=== PATIENT | male | born 1975 | race Caucasian/White ===

== ENCOUNTER 2017-04-25 19:50 | Inpatient (IN) | payer OTHER ==
[2017-04-25 20:32] VITALS: BMI 22.4
--- NOTE | 2017-04-25 21:21 | HP ---
COWS - Scale Resting Pulse: 2= MS 101-120 Sweatin=Flushed/Facial Moisture Restless Observation: 5= Unable to Sit Still Pupil Size: 1= Pupils >than Normal Bone or Joint Aches: 4=Acute Joint/Muscle Pain Runny Nose/ Eye Tearin= Nasal Congestion GI Upset > 30mins: 2= Nausea/Diarrhea Tremor Observation: 2= Slight Tremor Visible Yawning Observation: 1= 1-2x During Session Anxiety or Irritability: 2=Irritable/Anxious Goose Flesh Skin: 0=Smooth Skin COWS Score: 22 Admission [facility] Chief Complaint: C/O WITHDRAWAL SX'S; SEEKING DETOX FOR HEROIN DEPENDENCE Allergies/Adverse Reactions: Allergies Allergy/AdvReac Type Severity Reaction Status Date / Time apple Allergy Severe Swelling Verified 04/25/17 20:44 No Known Drug Allergies Allergy Verified 11/23/15 17:29 FRUITS AND VEGETABLES Allergy Severe Swelling Uncoded 04/25/17 20:44 History of Present Illness: 41 Y.O. MALE WITH LONG HX/O OPIOID AND COCAINE DEPENDENCE SEEKING DETOX TXMENT. HE REPORTS THIS IS HIS FIRST TIME IN SUBSTANCE ABUSE TXMENT. SELF REFERRED. DENIES ANY SIGNIFICANT PERIOD OF CLEAN TIME. Exam Limitations: Clinical Condition - Ebola screening Have you traveled outside of the country in the last 21 days: No Have you had contact with anyone from an Ebola affected area: No Have you been sick,other than usual withdrawal symptoms: No Do you have a fever: No - Review of Systems Constitutional: Chills, Loss of Appetite, Malaise, Night Sweats, Changes in sleep EENT: reports: Nose Congestion, Dental Problems (MISSING TEETH) Respiratory: reports: No Symptoms reported Cardiac: reports: No Symptoms Reported GI: reports: Nausea, Poor Appetite, Poor Fluid Intake, Rectal Bleeding : reports: No Symptoms Reported Musculoskeletal: reports: Back Pain, Joint Pain Integumentary: reports: Other (ABRASION TO RIGHT SIDE OF FACE) Neuro: reports: Headache Endocrine: reports: No Symptoms Reported Hematology: reports: No Symptoms Reported Psychiatric: reports: Anxious Other Systems: Reviewed and Negative Patient History - Patient Medical History Hx Anemia: No Hx Asthma: Yes (Pt is on Albuterol IH) Hx Chronic Obstructive Pulmonary Disease (COPD): No Hx Cancer: No Hx Cardiac Disorders: No Hx Congestive Heart Failure: No Hx Hypertension: No Hx Hypercholesterolemia: No Hx Pacemaker: No HX Cerebrovascular Accident: No Hx Seizures: No Hx Dementia: No Hx Diabetes: No Hx Gastrointestinal Disorders: No Hx Liver Disease: No Hx Genitourinary Disorders: No Hx Sexually Transmitted Disorders: No Hx Renal Disease (ESRD): No Hx Thyroid Disease: No Hx Human Immunodeficiency Virus (HIV): No Hx Hepatitis C: No Hx Depression: No Hx Suicide Attempt: No Hx Bipolar Disorder: No Hx Schizophrenia: No Other Medical History: ANXIETY - Patient Surgical History Past Surgical History: No Hx Neurologic Surgery: No Hx Cataract Extraction: No Hx Cardiac Surgery: No Hx Lung Surgery: No Hx Breast Surgery: No Hx Breast Biopsy: No Hx Abdominal Surgery: No Hx Appendectomy: No Hx Cholecystectomy: No Hx Genitourinary Surgery: No Hx Orthopedic Surgery: No Anesthesia Reaction: No - PPD History Previous Implant?: Yes Documented Results: Negative w/o proof Implanted On Prior R Admission?: No PPD to be Administered?: Yes - Smoking Cessation Smoking history: Current every day smoker Have you smoked in the past 12 months: Yes Aproximately how many cigarettes per day: 20 Cigars Per Day: 0 Hx Chewing Tobacco Use: No Initiated information on smoking cessation: Yes 'Breaking Loose' booklet given: 04/25/17 - Substance & Tx. History Hx Alcohol Use: No Hx Substance Use: Yes Substance Use Type: Cocaine, Heroin Hx Substance Use Treatment: No - Substances Abused Heroin Route: Injection Frequency: Daily Amount used: 15 bags Age of first use: 39 Date of Last Use: 04/24/17 Cocaine Route: Injection Frequency: 3-6 times per week Amount used: $40 Age of first use: 21 Date of Last Use: 04/21/17 Family Disease History - Family Disease History Family Disease History: Diabetes: Father (asthma), Respiratory: Father, Other: Mother (healthy) Admission Physical Exam BHS - Vital Signs Vital Signs: Vital Signs - 24 hr 04/25/17 20:19 Temperature 98.8 F Pulse Rate 105 H Respiratory 18 Rate Blood Pressure 116/80 - Physical General Appearance: Yes: Moderate Distress, Tremorous, Irritable, Anxious HEENTM: Yes: EOMI, Normocephalic, Normal Voice, NI, Pharynx Normal, Nasal Congestion, Other (MISSING TEETH) Respiratory: Yes: Chest Non-Tender, Lungs Clear, Normal Breath Sounds, No Respiratory Distress, No Accessory Muscle Use Neck: Yes: No masses,lesions,Nodules, Supple, Trachea in good position Breast: Yes: Breast Exam Deferred Cardiology: Yes: Regular Rhythm, S1, S2, Tachycardia Abdominal: Yes: Normal Bowel Sounds, Non Tender, Flat, Soft Genitourinary: Yes: Other (NO C/O) Back: Yes: Normal Inspection Musculoskeletal: Yes: full range of Motion, Gait Steady Extremities: Yes: Normal Range of Motion, Non-Tender, Tremors Neurological: Yes: Alert, Motor Strength 5/5 Integumentary: Yes: Normal Color, Dry, Warm, Track Portillo (BUE), Other (MULTIPLE AREAS OF ABRASION NOTED TO PATIENT FACE AND ARMS. STATES FROM PICKING AT HIS SKIN) Lymphatic: Yes: Within Normal Limits - Diagnostic (1) Opioid dependence with withdrawal Current Visit: Yes Status: Chronic (2) Cocaine dependence, uncomplicated Current Visit: Yes Status: Chronic (3) Nicotine dependence Current Visit: Yes Status: Chronic Qualifiers: Nicotine product type: cigarettes Substance use status: uncomplicated Qualified Code(s): F17.210 - Nicotine dependence, cigarettes, uncomplicated (4) Asthma Current Visit: No Status: Chronic Qualifiers: Asthma severity: mild Asthma persistence: intermittent Asthma complication type: uncomplicated Qualified Code(s): J45.20 - Mild intermittent asthma, uncomplicated Cleared for Admission S - Detox or Rehab [facility] Level of Care: Medically Managed Detox Regimen/Protocol: Methadone [facility] Breath Alcohol Content Breath Alcohol Content: 0 Urine Drug Screen - Results Drug Screen Negative: No Urine Drug Screen Results: IVORY-Cocaine, OPI-Opiates
[2017-04-25] MEDS ORDERED: MENTHOL/PHENOL 1 EACH UD MM PRN (21:30)
[2017-04-25] MEDS ORDERED: ACETAMINOPHEN 325 MG TABLET (FP) PO PRN (21:30)
[2017-04-25] MEDS ORDERED: NICOTINE POLACRILEX 2 MG GUM BC PRN (21:30)
[2017-04-25] MEDS ORDERED: MAG HYDROX/AL HYDROX/SIMETH 30 ML UNIT-DOSE CUP PO PRN (21:30)
[2017-04-25] MEDS ORDERED: MAGNESIUM CITRATE 300 ML BOTTLE PO PRN (21:30)
[2017-04-25] MEDS ORDERED: METHADONE HCL 10 MG TABLET (FOR DETOX USE ONLY) PO ONE ×2 (21:30→23:00)
[2017-04-25] MEDS ORDERED: IBUPROFEN 400 MG TABLET (FP) PO PRN (21:30)
[2017-04-25] MEDS ORDERED: P-EPHED 60MG/TRIPROLIDI 2.5MG TABLET PO PRN (21:30)
[2017-04-25] MEDS ORDERED: guaiFENesin/D-METHORPHAN HB 10 ML UNIT-DOSE CUPS PO PRN (21:30)
[2017-04-25] MEDS ORDERED: MAGNESIUM HYDROX 2400MG/30ML ORAL SUSPENSION 30 ML CUP PO PRN (21:30)
[2017-04-25] MEDS ORDERED: LOPERAMIDE HCL 2 MG CAPSULE PO PRN (21:30)
[2017-04-25] MEDS ORDERED: ONDANSETRON *ODT* 4 MG TABLET SL PRN (21:33)
[2017-04-25] MEDS ORDERED: BACITRACIN 15 GM TUBE TOPICAL OINTMENT TP SCH (22:00)
[2017-04-25] MEDS: BACITRACIN 0.9 GM PACKET TP SCH (22:46)
[2017-04-25] MEDS: BUDESONIDE/FORMETEROL FUMARATE 160/4.5 mcg INHALER IH SCH (22:48)
[2017-04-25] MEDS: THIAMINE HCL 100 MG TABLET (FP) PO SCH (22:48)
[2017-04-25] MEDS: ALBUTEROL SO4 18 GM HFA INHALER IH PRN (22:50)
[2017-04-25 23:58] LABS: URINE APPEARANCE CLEAR; URINE BILIRUBIN NEGATIVE (NEGATIVE); URINE BLOOD NEGATIVE (NEGATIVE); URINE COLOR YELLOW; URINE GLUCOSE (UA) NEGATIVE (NEGATIVE); URINE KETONE NEGATIVE (NEGATIVE); URINE LEUK ESTERASE NEGATIVE (NEGATIVE); URINE NITRITE NEGATIVE (NEGATIVE); URINE PROTEIN NEGATIVE (NEGATIVE); URINE UROBILINOGEN 4.0 E.U/dl mg/dL (0.2-1.0)
[2017-04-26] MEDS ORDERED: TRIMETHOBENZAMIDE HCL 200MG/2ML INJ IM PRN (00:31)
[2017-04-26] MEDS: diazePAM 5 MG TABLET PO PRN ×5 (02:43→23:34)
[2017-04-26] MEDS ORDERED: METHADONE HCL 10 MG TABLET (FOR DETOX USE ONLY) PO ONE (10:00)
[2017-04-26] MEDS ORDERED: ONDANSETRON *ODT* 4 MG TABLET SL PRN (10:09)
[2017-04-26] MEDS ORDERED: IBUPROFEN 600 MG TABLET (FP) PO PRN (10:09)
--- NOTE | 2017-04-26 10:15 | PN ---
BHS COWS - Scale Resting Pulse: 1= MS 81-100 Sweatin= Chills/Flushing Restless Observation: 3= Extraneous Movement Pupil Size: 0= Normal to Room Light Bone or Joint Aches: 4=Acute Joint/Muscle Pain Runny Nose/ Eye Tearin= Nasal Congestion GI Upset > 30mins: 3= Vomiting/Diarrhea Tremor Observation of Outstretched Hands: 2= Slight Tremor Visible Yawning Observation: 0= None Anxiety or Irritability: 2=Irritable/Anxious Goose Flesh Skin: 0=Smooth Skin COWS Score: 17 BHS Progress Note (SOAP) Subjective: ANXIETY,IRRITABILITY,NAUSEA,VOMITING, BODY ACHES, INTERMITTENT SLEEP. Objective: 04/26/17 10:15 Vital Signs Temperature 96.1 F L 04/26/17 06:50 Pulse Rate 62 04/26/17 06:50 Respiratory Rate 18 04/26/17 06:50 Blood Pressure 98/61 04/26/17 06:50 O2 Sat by Pulse Oximetry (%) Laboratory Last Values Urine Color Yellow 04/25/17 20:00 Urine Appearance Clear 04/25/17 20:00 Urine pH 8.0 (5.0-8.0) D 04/25/17 20:00 Ur Specific [place] 1.019 (1.001-1.035) 04/25/17 20:00 Urine Protein Negative (NEGATIVE) 04/25/17 20:00 Urine Glucose (UA) Negative (NEGATIVE) 04/25/17 20:00 Urine Ketones Negative (NEGATIVE) 04/25/17 20:00 Urine Blood Negative (NEGATIVE) 04/25/17 20:00 Urine Nitrite Negative (NEGATIVE) 04/25/17 20:00 Urine Bilirubin Negative (NEGATIVE) 04/25/17 20:00 Urine Urobilinogen 4.0 e.u/dl mg/dL (0.2-1.0) 04/25/17 20:00 Ur Leukocyte Esterase Negative (NEGATIVE) 04/25/17 20:00 OTHER LABS PENDING Assessment: 04/26/17 10:15 WITHDRAWAL SX Plan: CONTINUE DETOX
[2017-04-26] MEDS: BACITRACIN 0.9 GM PACKET TP SCH ×2 (10:57→22:35)
[2017-04-26] MEDS: ALBUTEROL SO4 18 GM HFA INHALER IH PRN ×2 (10:58→18:09)
[2017-04-26] MEDS: BUDESONIDE/FORMETEROL FUMARATE 160/4.5 mcg INHALER IH SCH ×2 (10:58→22:35)
[2017-04-26] MEDS: PRENATAL VITAMINS W/ FOLIC ACID TABLET (FP) PO SCH (10:58)
[2017-04-26] MEDS: NICOTINE 21 MG/24 HOURS TOPICAL PATCH TD SCH (10:58)
--- NOTE | 2017-04-26 12:32 | CONSULT ---
[facility] Psychiatric Consult - Data Date of interview: 04/26/17 Admission source: [facility] Identifying data: Firts admission to [facility] for this 41 y/o male seeking detox treatment on for opioid and cocaine (crack) dependence.Patient is ,a father of two,domiciled,currently unemployed and " temporarily " deprived of a source of income. Substance Abuse History: Discussed in this interview.Mr Vazquez admits to continuous use of heroin and crack + sporadic exposure to illicitly-acquired benzodiazepine (xanax).More than 20 years of substance dependence.See current [facility] report for details : Smoking history: Current every day smoker. Have you smoked in the past 12 months: Yes. Aproximately how many cigarettes per day: 20. Cigars Per Day: 0. Hx Chewing Tobacco Use: No. Initiated information on smoking cessation: Yes. 'Breaking Loose' booklet given: 04/25/17. - Substance & Tx. History. Hx Alcohol Use: No. Hx Substance Use: Yes. Substance Use Type : Cocaine, Heroin. Hx Substance Use Treatment: No. - Substances Abused. Heroin. Route: Injection. Frequency: Daily. Amount used: 15 bags. Age of first use: 39. Date of Last Use: 04/24/17. Cocaine. Route: Injection. Frequency: 3-6 times per week. Amount used: $40. Age of first use: 21. Date of Last Use: 04/21/17 Medical History: Bronchial asthma,lower back pain and a history of meningitis. Psychiatric History: Patient denies. Physical/Sexual Abuse/Trauma History: Patient denies. Additional Comment: Urine Drug Screen Results: IVORY-Cocaine, OPI-Opiates.Noted. Mental Status Exam - Mental Status Exam Alert and Oriented to: Time, Place, Person Cognitive Function: Good Patient Appearance: Unkempt, Disheveled (thin habitus,short stature) Mood: Nervous, Withdrawn, Anxious Affect: Mood Congruent Patient Behavior: Fatigued, Appropriate, Cooperative Speech Pattern: Clear, Appropriate Voice Loudness: Normal Thought Process: Intact, Goal Oriented Thought Disorder: Not Present Hallucinations: Denies Suicidal Ideation: Denies Homicidal Ideation: Denies Insight/Judgement: Poor Sleep: Well Appetite: Good Muscle strength/Tone: Normal Gait/Station: Normal Psychiatric Findings - Problem List (Levasy 1, 2,3) (1) Opioid dependence with withdrawal Current Visit: Yes Status: Acute (2) Cocaine dependence, uncomplicated Current Visit: Yes Status: Acute (3) Nicotine dependence Current Visit: Yes Status: Acute Qualifiers: Nicotine product type: cigarettes Substance use status: in withdrawal Qualified Code(s): F17.213 - Nicotine dependence, cigarettes, with withdrawal - Initial Treatment Plan Initial Treatment Plan: Psychoeducation.Detoxification in progress.Observation.
[2017-04-26] MEDS: THIAMINE HCL 100 MG TABLET (FP) PO SCH (22:35)
[2017-04-27] MEDS: diazePAM 5 MG TABLET PO PRN ×2 (09:49→15:12)
[2017-04-27] MEDS ORDERED: METHADONE HCL 5 MG TABLET (FOR DETOX USE ONLY) PO ONE (10:00)
[2017-04-27] MEDS: PRENATAL VITAMINS W/ FOLIC ACID TABLET (FP) PO SCH (10:39)
[2017-04-27] MEDS: ALBUTEROL SO4 18 GM HFA INHALER IH PRN (10:39)
[2017-04-27] MEDS: NICOTINE 21 MG/24 HOURS TOPICAL PATCH TD SCH (10:39)
[2017-04-27] MEDS: BACITRACIN 0.9 GM PACKET TP SCH (10:39)
[2017-04-27] MEDS: BUDESONIDE/FORMETEROL FUMARATE 160/4.5 mcg INHALER IH SCH (10:39)
--- NOTE | 2017-04-27 12:15 | EKG ---
Test Reason : Blood Pressure : / mmHG Vent. Rate : 080 BPM Atrial Rate : 080 BPM P-R Int : 116 ms QRS Dur : 092 ms QT Int : 364 ms P-R-T Axes : 059 082 056 degrees QTc Int : 419 ms NORMAL SINUS RHYTHM NORMAL ECG WHEN COMPARED WITH ECG OF 22-MAY-2014 17:38, NONSPECIFIC T WAVE ABNORMALITY NO LONGER EVIDENT IN INFERIOR LEADS NONSPECIFIC T WAVE ABNORMALITY NO LONGER EVIDENT IN ANTERIOR LEADS Confirmed by MD JOSEY, DELMI ([id number]) on 04/27/2017 12:14:54 PM Referred By: Mickey Juarez Confirmed By:DELMI DOWLING MD
--- NOTE | 2017-04-27 12:19 | PN ---
BHS COWS - Scale Resting Pulse: 1= [place] 81-100 Sweatin= Chills/Flushing Restless Observation: 3= Extraneous Movement Pupil Size: 2= Moderately Dilated Bone or Joint Aches: 4=Acute Joint/Muscle Pain Runny Nose/ Eye Tearin= Nasal Congestion GI Upset > 30mins: 2= Nausea/Diarrhea Tremor Observation of Outstretched Hands: 2= Slight Tremor Visible Yawning Observation: 2= >3x During Session Anxiety or Irritability: 2=Irritable/Anxious Goose Flesh Skin: 0=Smooth Skin COWS Score: 20 BHS Progress Note (SOAP) Subjective: PT APPEARS MORE ENGAGING TODAY. C/O ANXIETY, NAUSEA,QUEEZY STOMACH, HOT/COLD SWEATS, INTERMITTENT SLEEP. Objective: 04/27/17 12:17 Vital Signs Temperature 95.6 F L 04/27/17 10:30 Pulse Rate 83 04/27/17 10:30 Respiratory Rate 18 04/27/17 10:30 Blood Pressure 110/66 04/27/17 10:30 O2 Sat by Pulse Oximetry (%) Laboratory Last Values Urine Color Yellow 04/25/17 20:00 Urine Appearance Clear 04/25/17 20:00 Urine pH 8.0 (5.0-8.0) D 04/25/17 20:00 Ur Specific [place] 1.019 (1.001-1.035) 04/25/17 20:00 Urine Protein Negative (NEGATIVE) 04/25/17 20:00 Urine Glucose (UA) Negative (NEGATIVE) 04/25/17 20:00 Urine Ketones Negative (NEGATIVE) 04/25/17 20:00 Urine Blood Negative (NEGATIVE) 04/25/17 20:00 Urine Nitrite Negative (NEGATIVE) 04/25/17 20:00 Urine Bilirubin Negative (NEGATIVE) 04/25/17 20:00 Urine Urobilinogen 4.0 e.u/dl mg/dL (0.2-1.0) 04/25/17 20:00 Ur Leukocyte Esterase Negative (NEGATIVE) 04/25/17 20:00 LABS REORDERED FOR RE-DRAWING. Assessment: 04/27/17 12:18 WITHDRAWAL SX Plan: CONTINUE DETOX ZOFRAN SL TO BE ORDERED
[2017-04-27 15:36] VITALS: BP 106/75; PULSE 95; TEMP 96.9
--- NOTE | 2017-04-27 16:49 | PN ---
<Kim Ruff - Last Filed: 04/27/17 16:44> BHS Progress Note Note: Patient was smoking in the unit. Refuse to abide by unit rules. Patient was administratively discharge. Patient in parent distress. <Mickey Juarez - Last Filed: 04/28/17 09:10> BHS Progress Note Note: no apparent distress no suicidal ideation or homicidal ideation noted
[2017-04-28] MEDS ORDERED: METHADONE HCL 5 MG TABLET (FOR DETOX USE ONLY) PO ONE (10:00)
[2017-04-29] MEDS ORDERED: METHADONE HCL 10 MG TABLET (FOR DETOX USE ONLY) PO ONE (10:00)
[2017-04-30] MEDS ORDERED: METHADONE HCL 5 MG TABLET (FOR DETOX USE ONLY) PO ONE (06:00)
== END 2017-04-27 17:08 | disposition left against medical advice (07) | DRG 773 ==
LOC: YASAS 19:50 → Y3N 20:33
PROVIDERS: ADMIT Internal Medicine; ATTEND Internal Medicine
PROC: HZ2ZZZZ Detoxification Services for Substance Abuse Treatment (ICD-10-PCS; principal; 2017-04-25)
DX: F11.23 Opioid dependence with withdrawal (principal); F14.20 Cocaine dependence, uncomplicated; F17.213 Nicotine dependence, cigarettes, with withdrawal; F91.8 Other conduct disorders; J45.20 Mild intermittent asthma, uncomplicated; M54.5 Low back pain; R00.0 Tachycardia, unspecified
CPT/HCPCS: 81003; 93005; 93010; Q0162

== ENCOUNTER 2017-04-27 23:01 | Emergency (ER) | payer OTHER ==
[2017-04-27 23:16] VITALS: BP 108/68; PULSE 82; TEMP 97.6; BMI 22.8
[2017-04-28] MEDS ORDERED: IBUPROFEN 400 MG TABLET (FP) PO ONE ×2 (01:14→02:04)
--- NOTE | 2017-04-28 01:14 | PDOC ---
History of Present Illness - General History Source: Patient Exam Limitations: No Limitations - History of Present Illness Initial Comments: 04/28/17 01:20 The patient is a 41 year old male with a significant PMH of asthma and chronic lower back pain who presents to the emergency department with a headache beginning approximately 2 days ago. He reports associated photophobia and phonophobia with his headache. The patient also notes his usual lower back pain. He denies taking any medication for his headache or back pain. The patient denies chest pain, shortness of breath and dizziness. Denies fever, chills, nausea, vomit, diarrhea and constipation. Denies dysuria, frequency, urgency and hematuria. Allergies: NKDA. Fruits and vegetables. Past surgical history: None reported. Social history: Everyday smoker. Past cocaine and heroin use. No reported alcohol use. PCP: None reported. <Arnie Childs - Last Filed: 04/28/17 01:20> - General History Source: Patient <Volodymyr Choi - Last Filed: 04/28/17 02:56> - General Chief Complaint: Headache Stated Complaint: HEADACHE Time Seen by Provider: 04/28/17 01:14 Past History <Arnie Childs - Last Filed: 04/28/17 01:20> - Past Medical History Anemia: No Asthma: Yes (Pt is on Albuterol IH) Cancer: No Cardiac Disorders: No CVA: No COPD: No CHF: No Dementia: No Diabetes: No GI Disorders: No Disorders: No HTN: No Hypercholesterolemia: No Kidney Stones: No Liver Disease: No Seizures: No Thyroid Disease: No - Surgical History Abdominal Surgery: No Appendectomy: No Cardiac Surgery: No Cholecystectomy: No Lung Surgery: No Neurologic Surgery: No Orthopedic Surgery: No - Reproductive History Testicular Surgery: No - Suicide/Smoking/Psychosocial Hx Smoking History: Current some day smoker Have you smoked in the past 12 months: Yes Number of Cigarettes Smoked Daily: 20 If you are a former smoker, when did you quit?: 2 weeks ago Cigars Per Day: 0 Information on smoking cessation initiated: No 'Breaking Loose' booklet given: 04/25/17 Hx Alcohol Use: No Drug/Substance Use Hx: No Substance Use Type: Cocaine, Heroin Hx Substance Use Treatment: No <Volodymyr Choi - Last Filed: 04/28/17 02:56> - Past Medical History Allergies/Adverse Reactions: Allergies Allergy/AdvReac Type Severity Reaction Status Date / Time apple Allergy Severe Swelling Verified 04/27/17 23:16 No Known Drug Allergies Allergy Verified 04/27/17 23:16 FRUITS AND VEGETABLES Allergy Severe Swelling Uncoded 04/27/17 23:16 Home Medications: Ambulatory Orders Albuterol Sulfate Inhaler - [Ventolin HFA Inhaler -] 1 - 2 inh PO Q4H PRN #1 inhaler 12/01/15 Budesonide/Formeterol Fumarate [SYMBICORT 160/4.5mcg -] 2 puff IH BID inhaler 12/01/15 Amox-Tr/K Cl [Augmentin 875Mg Tablet] 1 tab PO BID #20 tablet 04/28/17 Review of Systems - Review of Systems Able to Perform ROS?: Yes Comments:: 04/28/17 01:20 CONSTITUTIONAL: Absent: fever, chills, diaphoresis, generalized weakness, malaise, loss of appetite HEENT: Absent: rhinorrhea, nasal congestion, throat pain, throat swelling, difficulty swallowing, mouth swelling, ear pain, eye pain, visual Changes CARDIOVASCULAR: Absent: chest pain, syncope, palpitations, irregular heart rate, lightheadedness , peripheral edema RESPIRATORY: Absent: cough, shortness of breath, dyspnea with exertion, orthopnea, wheezing, stridor, hemoptysis GASTROINTESTINAL: Absent: abdominal pain, abdominal distension, nausea, vomiting, diarrhea, constipation, melena, hematochezia GENITOURINARY: Absent: dysuria, frequency, urgency, hesitancy, hematuria, flank pain, genital pain MUSCULOSKELETAL: (+) Chronic lower back pain. Absent:arthralgia, joint swelling SKIN: Absent: rash, itching, pallor HEMATOLOGIC/IMMUNOLOGIC: Absent: easy bleeding, easy bruising, lymphadenopathy, frequent infections ENDOCRINE: Absent: unexplained weight gain, unexplained weight loss, heat intolerance, cold intolerance NEUROLOGIC: (+) Headache. Absent: focal weakness or paresthesias, dizziness, unsteady gait, seizure, mental status changes, bladder or bowel incontinence PSYCHIATRIC: Absent: anxiety, depression, suicidal or homicidal ideation, hallucinations. <Arnie Childs - Last Filed: 04/28/17 01:20> *Physical Exam - Vital Signs Last Vital Signs Temp Pulse Resp BP Pulse Ox 97.6 F 82 18 108/68 100 04/27/17 23:12 04/27/17 23:12 04/27/17 23:12 04/27/17 23:12 04/27/17 23:12 - Physical Exam Comments: 04/28/17 01:21 GENERAL: Well developed, well nourished. Awake and alert. No acute distress. HEENT: No nuchal rigidity. Normocephalic, atraumatic. PERRLA, EOMI. No conjunctival pallor. Sclera are non- icteric. Moist mucous membranes. Oropharynx is clear. NECK: Supple. Full ROM. No JVD. Carotid pulses 2+ and symmetric, without bruits. No thyromegaly. No lymphadenopathy. CARDIOVASCULAR: Regular rate and rhythm. No murmurs, rubs, or gallops. Distal pulses are 2+ and symmetric. PULMONARY: No evidence of respiratory distress. Lungs clear to auscultation bilaterally. No wheezing, rales or rhonchi. ABDOMINAL: Soft. Non-tender. Non-distended. No rebound or guarding. No organomegaly. Normoactive bowel sounds. MUSCULOSKELETAL Normal range of motion at all joints. No bony deformities or tenderness. No CVA tenderness. EXTREMITIES: No cyanosis. No clubbing. No edema. No calf tenderness. SKIN: Warm and dry. Normal capillary refill. No rashes. No jaundice. NEUROLOGICAL: Alert, awake, appropriate. Cranial nerves 2-12 intact. No deficits to light touch and temperature in face, upper extremities and lower extremities. No motor deficits in the in face, upper extremities and lower extremities. Normoreflexic in the upper and lower extremities. Normal speech. Toes are downgoing bilaterally. Gait is normal without ataxia. PSYCHIATRIC: Cooperative. Good eye contact. Appropriate mood and affect. <Arnie Childs - Last Filed: 04/28/17 01:20> - Vital Signs Last Vital Signs Temp Pulse Resp BP Pulse Ox 97.6 F 82 18 108/68 100 04/27/17 23:12 04/27/17 23:12 04/27/17 23:12 04/27/17 23:12 04/27/17 23:12 <Volodymyr Choi - Last Filed: 04/28/17 02:56> Medical Decision Making - Medical Decision Making 04/28/17 02:56 Dr. Sinisterra: The scribe's documentation has been prepared under my direction and personally reviewed by me in its entirery. I confirm that the note above accurately reflects all work, treatment, procedures, and medical decision making performed by me. <Volodymyr Choi - Last Filed: 04/28/17 02:56> *DC/Admit/Observation/Transfer - Attestations Scribe Attestion: 04/28/17 01:21 Documentation prepared by Arnie Childs, acting as director medical safety for Volodymyr Choi DO. <Arnie Childs - Last Filed: 04/28/17 01:20> - Discharge Dispostion Admit: No <Volodymyr Choi - Last Filed: 04/28/17 02:56> Diagnosis at time of Disposition: Headache Qualifiers: Headache type: unspecified Headache chronicity pattern: acute headache Intractability: not intractable Qualified Code(s): R51 - Headache Sinusitis Qualifiers: Sinusitis location: unspecified location Chronicity: acute Recurrence: not specified as recurrent Qualified Code(s): J01.90 - Acute sinusitis, unspecified - Discharge Dispostion Disposition: HOME Condition at time of disposition: Stable - Referrals Referrals: Joseph Darnell DO [Staff Physician] - - Patient Instructions Printed Discharge Instructions: DI for Sinusitis, DI for Headache
[2017-04-28] MEDS ORDERED: METOCLOPRAMIDE HCL 10 MG TABLET (FP) PO ONE ×2 (01:15→02:04)
[2017-04-28] MEDS ORDERED: AMOX TR/POT CLAV 875MG/125MG TABLETS (FP) PO STA (02:54)
[2017-04-28] MEDS ORDERED: AMOX TR/POT CLAV 875MG/125MG TABLETS (FP) ONE (03:14)
== END 2017-04-28 03:17 | disposition home or self-care (01) ==
LOC: JER 23:01
DX: J01.90 Acute sinusitis, unspecified (principal); R51 Headache; J45.909 Unspecified asthma, uncomplicated; F17.210 Nicotine dependence, cigarettes, uncomplicated
CPT/HCPCS: 70450-TC; 99281-25